=== PATIENT | female | born 1965 | race Caucasian/White ===

== ENCOUNTER 2018-02-25 14:18 | Inpatient (IN) | payer BC ==
[2018-02-25 16:33] LABS: ADD MAN DIFF? NO
[2018-02-25 16:38] LABS: BASOPHILS % 0.5 % (0.0-2.0); EOSINOPHILS # 0.1 10^3/ul (0.0-0.5); EOSINOPHILS % 0.9 % (0.0-7.0); HEMATOCRIT 41.1 % (37.0-47.0); HEMOGLOBIN 13.4 g/dl (12.0-16.0); LYMPHOCYTES # 2.2 10^3/ul (0.8-2.9); LYMPHOCYTES % 28.9 % (15.0-51.0); MEAN CORPUSCULAR HEMOGLOBIN 28.3 pg (29.0-33.0); MEAN CORPUSCULAR HGB CONC 32.6 g/dl (32.0-37.0); MEAN CORPUSCULAR VOLUME 86.7 fl (82.0-101.0); MEAN PLATELET VOLUME 11.2 fl (7.4-10.4); MONOCYTE # 0.6 10^3/ul (0.3-0.9); MONOCYTES % 8.4 % (0.0-11.0); NEUTROPHIL # 4.6 10^3/ul (1.6-7.5); NEUTROPHILS % 61.2 % (39.0-77.0); PLATELET COUNT 285 10^3/UL (140-415); RED BLOOD COUNT 4.74 10^6/ul (4.20-5.40); RED CELL DISTRIBUTION WIDTH 14.7 % (11.5-14.5)
[2018-02-25 16:38] LABS: WHITE BLOOD COUNT 7.6 10^3/ul (4.8-10.8)
[2018-02-25 16:53] LABS: INR 0.94; PROTIME 12.7 Sec (11.9-14.9)
[2018-02-25 16:55] LABS: ANION GAP 10 (5-13); BLOOD UREA NITROGEN 15 mg/dl (7-20); CALCIUM 9.3 mg/dl (8.4-10.2); CARBON DIOXIDE 29 mmol/L (21-31); CHLORIDE 103 mmol/L (97-110); CHOL/HDL RATIO 2.7 RATIO; CHOLESTEROL 189 mg/dl (100-200); CREATININE 0.67 mg/dl (0.44-1.00); Estimated GFR > 60 mL/min (>60); GLUCOSE 90 mg/dl (70-220); HDL CHOLESTEROL 68 mg/dl (37-92); LDL CHOLESTEROL,CALCULATED 108 mg/dl; POTASSIUM 3.9 mmol/L (3.5-5.1); SODIUM 142 mmol/L (135-144); TRIGLYCERIDES 63 mg/dl (0-149)
[2018-02-25 17:00] LABS: HEMOGLOBIN A1C 5.3 % (0-5.9)
[2018-02-25 17:06] LABS: TROPONIN-I < 0.012 ng/ml (0.000-0.120)
[2018-02-25 17:09] LABS: ADD UMIC YES; UR ASCORBIC ACID NEGATIVE (NEGATIVE); UR BACTERIA FEW /HPF (NONE SEEN); UR BILIRUBIN (Dip) NEGATIVE (NEGATIVE); UR BLOOD (Dip) 1+ mg/dL (NEGATIVE); UR CLARITY CLEAR (CLEAR); UR COLOR YELLOW (YELLOW); UR GLUCOSE (Dip) NEGATIVE (NEGATIVE); UR KETONES (Dip) NEGATIVE (NEGATIVE); UR LEUKOCYTE ESTERASE (Dip) TRACE Leu/ul (NEGATIVE); UR NITRITE (Dip) NEGATIVE (NEGATIVE); UR RBC 4 /HPF (0-5); UR SPECIFIC GRAVITY (Dip) 1.006 (1.003-1.030); UR TOTAL PROTEIN (Dip) NEGATIVE (NEGATIVE); UR UROBILINOGEN (Dip) NEGATIVE (NEGATIVE); UR WBC 3 /HPF (0-5)
[2018-02-25 17:26] LABS: AMPHETAMINE/METHAMPHETAMINE Negative (NEGATIVE); BARBITURATES Negative (NEGATIVE); BENZODIAZEPINES Negative (NEGATIVE); CANNABINOIDS Negative (NEGATIVE); COCAINE Negative (NEGATIVE); OPIATES Negative (NEGATIVE)
[2018-02-25] MEDS: ASPIRIN 81 MG TAB PO (17:57)
[2018-02-25] MEDS ORDERED: ONDANSETRON 4 MG INJ IV (18:30)
[2018-02-26] MEDS ORDERED: ONDANSETRON 4 MG INJ IV
[2018-02-26] MEDS ORDERED: NACL 0.9% 3 ML SYG IV
[2018-02-26] MEDS ORDERED: ACETAMINOPHEN 325 MG TAB PO
[2018-02-26 01:10] LABS: CREATINE KINASE 47 IU/L (23-200)
[2018-02-26 01:23] LABS: CK INDEX 0.6; CK-MB 0.28 ng/ml (0.0-2.4); TROPONIN-I < 0.012 ng/ml (0.000-0.120)
[2018-02-26] MEDS: ACETAMINOPHEN 325 MG TAB PO (06:16)
[2018-02-26 06:25] LABS: ADD MAN DIFF? NO
[2018-02-26 06:30] LABS: WHITE BLOOD COUNT 5.5 10^3/ul (4.8-10.8)
[2018-02-26 06:30] LABS: BASOPHILS % 0.7 % (0.0-2.0); EOSINOPHILS # 0.2 10^3/ul (0.0-0.5); EOSINOPHILS % 2.9 % (0.0-7.0); HEMATOCRIT 36.6 % (37.0-47.0); HEMOGLOBIN 12.1 g/dl (12.0-16.0); LYMPHOCYTES % 35.8 % (15.0-51.0); MEAN CORPUSCULAR HEMOGLOBIN 28.5 pg (29.0-33.0); MEAN CORPUSCULAR HGB CONC 33.1 g/dl (32.0-37.0); MEAN CORPUSCULAR VOLUME 86.3 fl (82.0-101.0); MEAN PLATELET VOLUME 10.8 fl (7.4-10.4); MONOCYTE # 0.6 10^3/ul (0.3-0.9); MONOCYTES % 10.5 % (0.0-11.0); NEUTROPHIL # 2.7 10^3/ul (1.6-7.5); NEUTROPHILS % 49.9 % (39.0-77.0); PLATELET COUNT 243 10^3/UL (140-415); RED BLOOD COUNT 4.24 10^6/ul (4.20-5.40)
[2018-02-26 06:46] LABS: HEMOGLOBIN A1C 5.3 % (0-5.9)
[2018-02-26 06:57] LABS: ALANINE AMINOTRANSFERASE 19 IU/L (13-69); ALBUMIN 3.1 g/dl (3.3-4.9); ALBUMIN/GLOBULIN RATIO 0.93; ALKALINE PHOSPHATASE 89 IU/L (42-121); ANION GAP 11 (5-13); ASPARTATE AMINO TRANSFERASE 17 IU/L (15-46); BILIRUBIN,INDIRECT 0.9 mg/dl (0-1.1); BILIRUBIN,TOTAL 0.9 mg/dl (0.2-1.3); BLOOD UREA NITROGEN 12 mg/dl (7-20); CALCIUM 8.9 mg/dl (8.4-10.2); CARBON DIOXIDE 29 mmol/L (21-31); CHLORIDE 106 mmol/L (97-110); CHOL/HDL RATIO 2.6 RATIO; CHOLESTEROL 158 mg/dl (100-200); Estimated GFR > 60 mL/min (>60); GLUCOSE 80 mg/dl (70-220); HDL CHOLESTEROL 59 mg/dl (37-92); LDL CHOLESTEROL,CALCULATED 85 mg/dl; MAGNESIUM 1.8 mg/dl (1.7-2.5); POTASSIUM 4.3 mmol/L (3.5-5.1); SODIUM 146 mmol/L (135-144); TOTAL PROTEIN 6.4 g/dl (6.1-8.1); TRIGLYCERIDES 70 mg/dl (0-149)
[2018-02-26 07:34] LABS: CREATINE KINASE 43 IU/L (23-200)
[2018-02-26 07:47] LABS: CK INDEX 0.5; CK-MB < 0.22 ng/ml (0.0-2.4); TROPONIN-I < 0.012 ng/ml (0.000-0.120)
[2018-02-26] MEDS: ASPIRIN 81 MG TAB PO (08:23)
[2018-02-26 08:25] LABS: THYROID STIMULATING HORMONE 0.848 MIU/L (0.465-4.680)
[2018-02-26] MEDS: ENOXAPARIN 40 MG/0.4 ML SYG SC (08:36)
[2018-02-26 18:23] LABS: ERYTHROCYTE SEDIMENTATION RATE 21 mm/Hr (0-30)
[2018-02-26] MEDS ORDERED: ATORVASTATIN 40 MG TAB PO (21:00)
[2018-02-26] MEDS: ATORVASTATIN 80 MG TAB PO (21:01)
[2018-02-26] MEDS: FAMOTIDINE 20 MG TAB PO (21:01)
[2018-02-27 06:30] LABS: ADD MAN DIFF? NO
[2018-02-27 06:40] LABS: WHITE BLOOD COUNT 6.5 10^3/ul (4.8-10.8)
[2018-02-27 06:40] LABS: BASOPHILS % 0.6 % (0.0-2.0); EOSINOPHILS # 0.2 10^3/ul (0.0-0.5); EOSINOPHILS % 2.9 % (0.0-7.0); HEMOGLOBIN 12.2 g/dl (12.0-16.0); LYMPHOCYTES # 2.1 10^3/ul (0.8-2.9); LYMPHOCYTES % 32.5 % (15.0-51.0); MEAN CORPUSCULAR HEMOGLOBIN 28.6 pg (29.0-33.0); MEAN CORPUSCULAR VOLUME 86.9 fl (82.0-101.0); MEAN PLATELET VOLUME 11.1 fl (7.4-10.4); MONOCYTE # 0.7 10^3/ul (0.3-0.9); MONOCYTES % 10.5 % (0.0-11.0); NEUTROPHIL # 3.5 10^3/ul (1.6-7.5); NEUTROPHILS % 53.3 % (39.0-77.0); PLATELET COUNT 242 10^3/UL (140-415); RED BLOOD COUNT 4.26 10^6/ul (4.20-5.40); RED CELL DISTRIBUTION WIDTH 14.8 % (11.5-14.5)
[2018-02-27 07:09] LABS: ANION GAP 8 (5-13); BLOOD UREA NITROGEN 17 mg/dl (7-20); CALCIUM 8.8 mg/dl (8.4-10.2); CARBON DIOXIDE 28 mmol/L (21-31); CHLORIDE 105 mmol/L (97-110); CREATININE 0.68 mg/dl (0.44-1.00); Estimated GFR > 60 mL/min (>60); GLUCOSE 85 mg/dl (70-220); POTASSIUM 4.1 mmol/L (3.5-5.1); SODIUM 141 mmol/L (135-144)
[2018-02-27] MEDS: FAMOTIDINE 20 MG TAB PO ×2 (08:19→20:41)
[2018-02-27] MEDS: ASPIRIN 81 MG TAB PO (08:19)
[2018-02-27] MEDS: ENOXAPARIN 40 MG/0.4 ML SYG SC (08:29)
[2018-02-27 15:20] LABS: RAPID PLASMA REAGIN NONREACTIVE (NR)
[2018-02-27] MEDS: ATORVASTATIN 80 MG TAB PO (20:41)
[2018-02-28] MEDS: ASPIRIN 81 MG TAB PO (08:12)
[2018-02-28] MEDS: FAMOTIDINE 20 MG TAB PO ×2 (08:12→20:46)
[2018-02-28] MEDS: LISINOPRIL 5 MG TAB PO (08:13)
[2018-02-28] MEDS: ENOXAPARIN 40 MG/0.4 ML SYG SC (08:20)
[2018-02-28] MEDS: SOD CHLORIDE 0.9% 100 ML (09:53)
[2018-02-28] MEDS: IOHEXOL 100 ML (09:53)
[2018-02-28] MEDS: LACTULOSE 30ML CUP PO (10:32)
[2018-02-28] MEDS: NA PHOSPHATE/BIPHOS 133 ML ENEMA PR (10:33)
[2018-02-28] MEDS: ATORVASTATIN 80 MG TAB PO (20:46)
[2018-03-01] MEDS: ASPIRIN 81 MG TAB PO (08:21)
[2018-03-01] MEDS: FAMOTIDINE 20 MG TAB PO (08:21)
[2018-03-01] MEDS: LISINOPRIL 5 MG TAB PO (08:21)
[2018-03-01] MEDS: ENOXAPARIN 40 MG/0.4 ML SYG SC (08:23)
== END 2018-03-01 18:32 | disposition home or self-care (01) | DRG 65 ==
LOC: E/R 14:18 → MS1 02-28 23:26 → TEL 18:28
DX: I63.50 Cerebral infarction due to unspecified occlusion or stenosis of unspecified cerebral artery (principal); G81.91 Hemiplegia, unspecified affecting right dominant side; I50.32 Chronic diastolic (congestive) heart failure; M32.10 Systemic lupus erythematosus, organ or system involvement unspecified; M32.9 Systemic lupus erythematosus, unspecified; Z98.84 Bariatric surgery status; E66.9 Obesity, unspecified; I11.0 Hypertensive heart disease with heart failure; E11.9 Type 2 diabetes mellitus without complications
CPT/HCPCS: 36415; 70450; 70498; 70544; 70549; 70551; 71045; 80048; 80053; 80061; 80307; 81001; 82550; 82553; 83036; 83735; 84443; 84484; 85025; 85610; 85613; 85651; 85730; 86592; 92610; 93306; 93880; 97110; 97116; 97162; 97530; 99285-25